=== PATIENT | male | born 1990 | race Caucasian/White ===

== ENCOUNTER 2024-06-17 16:43 | Emergency (ER) | payer MEDICAID ==
[2024-06-17 17:02] LABS: BASOPHILS ABSOLUTE AUTO 0.08 K/uL (0.00-0.20); BASOPHILS PERCENT AUTO 0.6 % (0.0-1.0); EOSINOPHILS ABSOLUTE AUTO 0.45 K/uL (0.00-0.45); EOSINOPHILS PERCENT AUTO 3.5 % (0.0-6.0); HEMATOCRIT 50.9 % (42.0-52.0); IMMATURE GRAN ABSOLUTE AUTO 0.06 K/uL (0.00-0.05); IMMATURE GRAN PERCENT AUTO 0.5 % (0.0-0.4); LYMPHOCYTES ABSOLUTE AUTO 3.46 K/uL (1.00-4.80); LYMPHOCYTES PERCENT AUTO 27.1 % (24.0-44.0); MEAN CORPUSCULAR HEMOGLOBIN 29.6 pg (28.0-32.0); MEAN CORPUSCULAR HGB CONC 33.4 g/dL (32.0-36.0); MEAN CORPUSCULAR VOLUME 88.5 fL (83.0-99.0); MEAN PLATELET VOLUME 10.7 fL (9.4-12.4); MONOCYTES ABSOLUTE AUTO 1.02 K/uL (0.00-0.80); NEUTROPHILS PERCENT AUTO 60.3 % (41.0-71.0); PLATELET COUNT,PLT 396 K/uL (150-400); RED BLOOD CELL COUNT 5.75 M/uL (4.52-5.90); WHITE BLOOD CELL COUNT,WBC 12.77 K/uL (3.9-11.3)
[2024-06-17 17:31] LABS: A/G RATIO 0.9 (0.9-1.6); ALANINE AMINOTRANSFERASE,ALT 48 IU/L (14-63); ALBUMIN 3.8 g/dL (3.4-5.0); ALKALINE PHOSPHATASE 96 U/L (46-116); ASPARTATE AMNIOTRANSFERASE,AST 15 IU/L (15-37); BILIRUBIN TOTAL 0.4 mg/dL (0.2-1.0); BLOOD UREA NITROGEN,BUN 5 mg/dL (7.0-18.0); CALCIUM 8.9 mg/dL (8.5-10.1); CARBON DIOXIDE,CO2 28.3 mmol/L (21.0-32.0); CHLORIDE,CL 103 mmol/L (98-107); CREATININE 1.1 mg/dL (0.8-1.3); ESTIMATED GFR 90 mL/min (>60); GLUCOSE RANDOM 91 mg/dL (74-106); LIPASE 27 U/L (16-77); MAGNESIUM 2.1 mg/dL (1.8-2.4); POTASSIUM,K 4.1 mmol/L (3.5-5.1); PRO B-TYPE NATRIUR PEPT,BNPPRO 18 pg/mL (0-125); SODIUM,NA 139 mmol/L (136-148)
== END 2024-06-17 18:59 | disposition left against medical advice (07) ==
LOC: MW.ED 16:43
DX: Z53.21 Procedure and treatment not carried out due to patient leaving prior to being seen by health care provider (principal)
CPT/HCPCS: 36415; 80053; 83690; 83735; 83880; 84484; 85025

== ENCOUNTER 2024-07-26 11:08 | Day surgery (SDC) | payer MEDICAID ==
[2024-07-26] MEDS: Lactated Ringers 1,000 ML IV SCH (11:50)
[2024-07-26] MEDS ORDERED: Lidocaine 2% 5 ML SDV ONE (12:24)
[2024-07-26] MEDS ORDERED: propofoL 500 MG/50 ML 50 ML ONE ×2 (12:24→12:38)
[2024-07-26] MEDS ORDERED: Lactated Ringers 1,000 ML IV SCH (13:15)
== END 2024-07-26 13:33 | disposition home or self-care (01) ==
LOC: MW.SDS 11:08
PROVIDERS: ATTEND Surgery
DX: K29.50 Unspecified chronic gastritis without bleeding (principal); K62.5 Hemorrhage of anus and rectum; K21.9 Gastro-esophageal reflux disease without esophagitis; I25.10 Atherosclerotic heart disease of native coronary artery without angina pectoris; I10 Essential (primary) hypertension; E66.9 Obesity, unspecified; F17.210 Nicotine dependence, cigarettes, uncomplicated; Z91.018 Allergy to other foods; Z79.899 Other long term (current) drug therapy; Z68.35 Body mass index [BMI] 35.0-35.9, adult
CPT/HCPCS: 43235; 45378; J2704; J7120; J3490